=== PATIENT | female | born 1970 | race Caucasian/White ===

== ENCOUNTER 2017-07-27 10:43 | Outpatient (CLI) | payer MEDICAID | END 2017-07-27 10:44 | disposition home or self-care (01) | PROVIDERS: ATTEND Hospitalist | DX: I69.891 Dysphagia following other cerebrovascular disease (principal); R13.12 Dysphagia, oropharyngeal phase; R63.3 Feeding difficulties | CPT/HCPCS: 74230 ==

== ENCOUNTER 2020-12-24 06:09 | Day surgery (SDC) | payer MEDICAID ==
[2020-12-23 11:50] VITALS: BMI 19.9
[2020-12-24] MEDS ORDERED: Midazolam HCl 2 mg/2 ml Vial ONE (07:23)
[2020-12-24] MEDS ORDERED: Ketamine 50 MG/ML (10ML VIAL) ONE (07:24)
[2020-12-24] MEDS ORDERED: diphenhydrAMINE 50 MG/ML VIAL ONE (07:46)
[2020-12-24] MEDS ORDERED: PROPOFOL 200 MG/20 ML VIAL ONE (08:30)
== END 2020-12-24 09:40 | disposition home or self-care (01) ==
LOC: SDC 06:09
PROVIDERS: ATTEND Internal Medicine Gastroenterology
PROC: 0DBL8ZZ Excision of Transverse Colon, Via Natural or Artificial Opening Endoscopic (ICD-10-PCS; principal; 2020-12-24)
DX: Z12.11 Encounter for screening for malignant neoplasm of colon (principal); K63.5 Polyp of colon; K64.8 Other hemorrhoids; Z79.899 Other long term (current) drug therapy
CPT/HCPCS: 88305; J1200; J2250; J2704